=== PATIENT | male | born 1950 | race Caucasian/White ===

== ENCOUNTER → 2016-08-12 | Outpatient (CLI) | payer OTHER ==
[~2016-08-12] MED LIST: ACETAMINOPHEN-1 EAC1; ACETAMINOPHEN-1 EAC1 PO; ADVAIR 250-501 EACH INH; ADVAIR 500-501 EACH INH; ALBUTEROL2.5 MG/31 INH; ALLEGRA ALLERG180 MG PO; APAP W/CODEINE1 TA2 PO; BACTRIM DS TAB1 EACH PO; BUPROPION HCL150 M1 PO; CARISOPRODOL; CELEBREX 200 M200 M1 PO; CELEBREX 200 M200 MG PO; CHANTIX0.5 MG PO; CIALIS PO; DARVOCET A5001 EAC1 PO; DEPLIN-ALGAL O1 EAC1 PO; ENDOCET 10-3251 EACH PO; FLEXERIL PO; HYOMAX SL SUBLING; HYOMAX-DT0.375 MG PO; KEFLEX500 MG PO; LEVAQUIN 500 M500 M2 PO; LEVSIN PO; LEVSIN0.125 MG SUBLING; LIDODERM 5%1 PATCH TOP; LYRICA 50 MG50 MG PO; MEDROL DOSPAK21 TAB PO; MUCINEX TA600 MG/TA1 PO; NEURONTIN600 MG PO; NEXIUM40 MG PO; NORCO 5-325 TA1 EACH PO; NORTRIPTYLINE H50 M3 PO; OPANA ER10 MG PO; OPANA ER30 M1 PO; OPANA ER40 M1 PO; OPANA ER5 MG PO; OPANA10 MG PO; OPANA5 M1 PO; OXYCONTIN10 M1 PO; PHENERGAN25 MG RE; PREDNISONE 10 M10 MG PO; PREDNISONE 20 M20 MG PO; PRILOSEC 20 MG20 MG PO; ROBAXIN 750 MG750 M1 PO; SKELAXIN 800 M800 M1 PO; SPIRIVA INH; VENTOLIN HFA 1818 GM INH; XANAX 0.25 MG0.25 MG PO; XANAX 0.5 MG0.5 MG PO; ZANTAC 150MG T150 M1 PO; ZOFRAN ODT4 MG PO
== END ==
LOC: MRI 08:20
DX: M48.02 Spinal stenosis, cervical region (principal); M47.812 Spondylosis without myelopathy or radiculopathy, cervical region

== ENCOUNTER → 2016-09-04 | Outpatient (CLI) | payer OTHER | LOC: RAD 15:07 | DX: M79.604 Pain in right leg (principal); M79.605 Pain in left leg ==

== ENCOUNTER → 2016-11-04 | Outpatient (CLI) | payer OTHER | LOC: PUL 09:20 | DX: J44.9 Chronic obstructive pulmonary disease, unspecified (principal) ==

== ENCOUNTER → 2016-12-30 | Outpatient (CLI) | payer OTHER | LOC: MRI 08:07 | DX: M54.2 Cervicalgia (principal); M54.6 Pain in thoracic spine; M54.40 Lumbago with sciatica, unspecified side ==

== ENCOUNTER → 2017-01-15 | Outpatient (CLI) | payer OTHER | LOC: MRI 08:18 | DX: M47.896 Other spondylosis, lumbar region (principal); M54.40 Lumbago with sciatica, unspecified side ==

== ENCOUNTER → 2017-04-26 | Outpatient (CLI) | payer OTHER ==
[2017-04-26 13:09] LABS: BE(vivo) 3.7 mmol/L (-2 to +3); PCO2 46.3 mmHg (35.0-45.0); pH 7.415 (7.360-7.450); sO2 83.1 % (92.0-98.0)
[2017-04-26 13:10] LABS: PO2 46.9 mmHg (80.0-100.0)
== END ==
LOC: PUL 08:43
PROVIDERS: Internal Medicine
DX: M54.5 Low back pain (principal)